=== PATIENT | male | born 1985 | race African-American/Black ===

== ENCOUNTER 2017-03-16 21:29 | Emergency (ER) | payer SELFPAY ==
[~2017-03-16] VITALS: Ht 188 cm; Wt 86.2 kg
[2017-03-16] MEDS ORDERED: LORazepam Inj 2mg/ml 1ml IV ONE (21:45)
[2017-03-16] MEDS ORDERED: levETIRAcetam 1,000mg/NS100ml 100 ML IVPB ONE (21:45)
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
[2017-03-16 22:25] LABS: ANION GAP 33 mmol/L (5-15); CALCIUM 9.9 MG/DL (8.5-10.1); CARBON DIOXIDE 11 MMOL/L (21-32); CHLORIDE 101 MMOL/L (98-107); CREATININE 1.7 MG/DL (0.55-1.30); GLOMERULAR FILTRATION RATE 57.7 mL/min (>60); POTASSIUM 2.8 MMOL/L (3.5-5.1); SODIUM 145 MMOL/L (136-145)
[2017-03-16 22:26] LABS: MEAN CORPUSCULAR HEMOGLOBIN 29.7 PG (27.0-31.0); MEAN CORPUSCULAR HGB CONC 32.5 G/DL (32.0-36.0); MEAN CORPUSCULAR VOLUME 91 FL (80-99); MEAN PLATELET VOLUME 6.8 FL (6.5-10.1); PLATELET COUNT 372 K/UL (150-450); RED BLOOD COUNT 5.98 M/UL (4.70-6.10); RED CELL DISTRIBUTION WIDTH 11.3 % (11.6-14.8)
[2017-03-16 22:30] LABS: WHITE BLOOD COUNT 22.4 K/UL (4.8-10.8)
[2017-03-16 22:38] LABS: ALCOHOL < 3 mg/dL
[2017-03-16 22:41] LABS: APPEARANCE,URINE CLEAR; KETONES,URINE 2+ (NEGATIVE); LEUKOCYTE ESTERASE ,URINE NEGATIVE (NEGATIVE); NITRITE,URINE NEGATIVE (NEGATIVE); PH,URINE 5 (4.5-8.0); PROTEIN,URINE 2+ (NEGATIVE); UROBILINOGEN,URINE NORMAL MG/DL (0.0-1.0)
[2017-03-16 22:51] LABS: BACTERIA,URINE OCCASIONAL /HPF; RBC,URINE 0-2 /HPF (0 - 0); SQUAMOUS EPITHELIAL CELL,UR OCCASIONAL /LPF (NONE/OCC); WBC,URINE 0-2 /HPF (0 - 0)
[2017-03-16 23:07] LABS: BAND NEUTROPHILS % (MANUAL) 5 % (0-8); BASOPHILS % (MANUAL) 0 % (0-2); EOSINOPHILS % (MANUAL) 0 % (0-3); LYMPHOCYTES % (MANUAL) 24 % (20-45); NEUTROPHILS % (MANUAL) 65 % (45-75); NUCLEATED RED BLOOD CELLS 1 /100 WBC; PLATELET ESTIMATE ADEQUATE; PLATELET MORPHOLOGY NORMAL; TOTAL CELLS COUNTED 100
[2017-03-16] MEDS ORDERED: KEPPRA500 M4 ORAL (23:24)
[2017-03-16 23:53] VITALS: BP 108/67
--- NOTE | 2017-03-17 09:34 | Diagnostic Imaging Report ---
Indication: Altered mental status and seizures Technique: Continuous helical CT scanning of the head was performed without intravenous contrast material. Axial and coronal 5 mm sections were generated. Radiation dose was minimized using automated exposure control Dose: Total Dose Length Product - DLP [address] Dose Index - CTDIvol(s) 70.38 mGy. Comparison: None Findings: The ventricular system is normal in size and configuration. There is no shift of midline structures. No abnormal extra-axial fluid collections are noted. There is no evidence of intracerebral bleeding. No other abnormal high or low density areas are noted within the brain. Intact calvarium. There is a small mucous retention cyst or polyp in the left maxillary sinus. Visualized orbits are unremarkable. The mastoids are clear. Impression: Normal CT scan of the head without contrast material. Incidental finding left maxillary sinus mucous retention cyst or polyp This agrees with the preliminary interpretation provided overnight by [facility] service. The CT scanner at [facility] is accredited by the [employer] and the scans are performed using protocols designed to limit radiation exposure to as low as reasonably achievable to attain images of sufficient resolution adequate for diagnostic evaluation.
== END 2017-03-16 23:54 | disposition home or self-care (01) ==
LOC: EMR 21:40
DX: G40.409 Other generalized epilepsy and epileptic syndromes, not intractable, without status epilepticus (principal); F15.10 Other stimulant abuse, uncomplicated; S05.11XA Contusion of eyeball and orbital tissues, right eye, initial encounter; S00.512A Abrasion of oral cavity, initial encounter; X58.XXXA Exposure to other specified factors, initial encounter; Y92.89 Other specified places as the place of occurrence of the external cause
CPT/HCPCS: 36415; 70450; 80048; 80307; 81003; 85007; 85025; 96361; 96365; 96375; 99284; G0480; J1953; 80329